=== PATIENT | male | born 1990 | race Caucasian/White ===

== ENCOUNTER 2018-09-25 10:35 | Emergency (ER) | payer OTHER ==
[2018-09-25] MEDS ORDERED: Sodium Chloride 0.9% 10 ML Syringe FLUSH PRN (12:06)
[2018-09-25] MEDS ORDERED: Ketorolac 30 MG/ML SDV IVPUSH ONE (12:07)
[2018-09-25] MEDS ORDERED: Dicyclomine 10 MG Cap PO ONE (12:07)
[2018-09-25] MEDS ORDERED: Dextrose 5%-Lact Ringers w/KCl 1,000 ML IV SCH (12:15)
--- NOTE | 2018-09-25 12:58 | EDM.PDOC ---
ED HPI GENERAL MEDICAL PROBLEM - General Chief Complaint: Gastrointestinal Problem Stated Complaint: DIARRHEA Time Seen by Provider: 09/25/18 11:57 Source of Information: Reports: Patient History Limitations: Reports: No Limitations - History of Present Illness INITIAL COMMENTS - FREE TEXT/NARRATIVE: 28-year-old male presents for evaluation and treatment Of diarrhea. Patient reports diarrhea started last night around 20:00. Reports that this diarrhea- like stool that is " Liquid " every 10-15 minutes since 20:00 last night. He reports associated symptoms of feeling chilled and diaphoretic. He is having some abdominal cramping. Denies any blood in the stool. Denies any fevers. He reports feeling dizzy. No nausea or vomiting or headaches. He also feels like he has some joint pain. He has been taking Tylenol for the joint pain, last dose was around 0400. Patient denies any recent travel. He denies any recent antibiotics recently. He states he did work at the [employer], he did eat there. He does not know of any ill contacts. Generalized Pain Score (Numeric/FACES): 7 - Related Data Allergies Allergy/AdvReac Type Severity Reaction Status Date / Time No Known Allergies Allergy Verified 09/25/18 11:06 Home Meds: Home Meds . [No Known Home Meds] 09/25/18 [History] Past Medical History - Past Surgical History Male Surgical History: Reports: Other (See Below) Other Male Surgeries/Procedures: removed " defect" from kidney Social & Family History - Tobacco Use Smoking Status *Q: Never Smoker Second Hand Smoke Exposure: No - Caffeine Use Caffeine Use: Reports: Coffee - Recreational Drug Use Recreational Drug Use: No ED ROS GENERAL - Review of Systems Review Of Systems: See Below Constitutional: Reports: Chills, Diaphoresis. Denies: Fever GI/Abdominal: Reports: Abdominal Pain (cramping), Diarrhea. Denies: Hematochezia, Melena, Nausea, Vomiting Musculoskeletal: Reports: Joint Pain ED EXAM, GI/ABD - Physical Exam Exam: See Below Exam Limited By: No Limitations General Appearance: Alert, WD/WN, No Apparent Distress Throat/Mouth: Normal Inspection, Normal Voice, No Airway Compromise, Other (dry mucus membranes) Respiratory/Chest: No Respiratory Distress, Lungs Clear, Normal Breath Sounds Cardiovascular: Normal Peripheral Pulses, Regular Rate, Rhythm, No Murmur GI/Abdominal Exam: Soft, Non-Tender, No Distention, Other (hyperactive bowel sounds) Neurological: Alert, Oriented, Normal Cognition Psychiatric: Normal Affect, Normal Mood Skin Exam: Warm, Dry, Normal Color Course - Vital Signs Last Recorded V/S: Last Vital Signs Temp 100.8 F H 09/25/18 11:04 Pulse 80 09/25/18 16:09 Resp 14 09/25/18 16:09 BP 105/92 H 09/25/18 16:09 Pulse Ox 98 09/25/18 16:09 - Orders/Labs/Meds Labs: Laboratory Tests 09/25/18 09/25/18 09/25/18 Range/Units 11:05 11:05 11:25 WBC 7.53 (4.23-9.07) K/mm3 RBC 6.03 (4.63-6.08) M/mm3 Hgb 17.5 (13.7-17.5) gm/L Hct 50.3 (40.1-51.0) % MCV 83.4 (79.0-92.2) fl MCH 29.0 (25.7-32.2) pg MCHC 34.8 (32.2-35.5) g/dl RDW Std Deviation 39.8 (35.1-43.9) fL Plt Count 234 (163-337) K/mm3 MPV 9.8 (9.4-12.3) fl Neutrophils % (Manual) 86 H (40-60) % Band Neutrophils % 0 (0-10) % Lymphocytes % (Manual) 8 L (20-40) % Atypical Lymphs % 0 % Monocytes % (Manual) 4 (2-10) % Eosinophils % (Manual) 2 (0.8-7.0) % Basophils % (Manual) 0 L (0.2-1.2) Platelet Estimate Adequate RBC Morph Comment Normal Sodium 141 (136-145) mEq/L Potassium 3.4 L (3.5-5.1) mEq/L Chloride 101 (98-107) mEq/L Carbon Dioxide 23 (21-32) mEq/L Anion Gap 20.4 H (5-15) BUN 17 (7-18) mg/dL Creatinine 1.2 (0.7-1.3) mg/dL Est Cr Clr Drug Dosing 106.56 mL/min Estimated GFR (MDRD) > 60 (>60) mL/min BUN/Creatinine Ratio 14.2 (14-18) Glucose 110 H (74-106) mg/dL Calcium 8.8 (8.5-10.1) mg/dL Magnesium 1.7 L (1.8-2.4) mg/dl Total Bilirubin 0.6 (0.2-1.0) mg/dL AST 33 (15-37) U/L ALT 83 H (16-63) U/L Alkaline Phosphatase 81 (46-116) U/L C-Reactive Protein 3.7 H* (<1.0) mg/dL Total Protein 7.5 (6.4-8.2) g/dl Albumin 4.2 (3.4-5.0) g/dl Globulin 3.3 gm/dL Albumin/Globulin Ratio 1.3 (1-2) C.difficile [id number] Presumptive negative C. difficile Tox (PCR) Negative Meds: Medications Discontinued Medications Generic Name Dose Route Start Last Admin Trade Name Freq PRN Reason Stop Dose Admin Dicyclomine HCl 20 mg 09/25/18 12:07 09/25/18 12:25 Bentyl PO 09/25/18 12:08 20 mg ONETIME ONE Administration Potassium Cl/Dextrose/Lact Ringer's 1,000 mls @ 500 mls/hr 09/25/18 12:15 12:29 D5 Lr With 20 Meq Kcl IV 500 mls/hr ASDIRECTED RICK Administration Lactated Ringer's 1,000 mls @ 999 mls/hr 09/25/18 13:46 09/25/18 14:33 Ringers, Lactated IV 09/25/18 14:46 999 mls/hr .BOLUS ONE Administration Ketorolac Tromethamine 30 mg 09/25/18 12:07 09/25/18 12:26 Toradol IVPUSH 09/25/18 12:08 30 mg ONETIME ONE Administration Sodium Chloride 10 ml 09/25/18 12:06 09/25/18 12:28 Saline Flush FLUSH 10 ml ASDIRECTED PRN Administration Keep Vein Open - Re-Assessments/Exams Free Text/Narrative Re-Assessment/Exam: 09/25/18 14:58 Reviewed the labs with the patient. Will obtain a second stool sample for wbc and culture. Will call if treatment is needed. Patient has received 2 liters of fluid, bentyl and toradol. Feeling improved. Will discharge home, discharge instructions as documented. Departure - Departure Time of Disposition: 15:05 Disposition: Home, Self-Care 01 Condition: Fair Clinical Impression: Diarrhea - Discharge Information *PRESCRIPTION DRUG MONITORING PROGRAM REVIEWED*: No *COPY OF PRESCRIPTION DRUG MONITORING REPORT IN PATIENT LAVELL: No Instructions: [place] Diet Referrals: PCP,None [Primary Care Provider] - Forms: ED Department Discharge Additional Instructions: recommend a probiotic. These are available [id number]. make sure you are drinking plenty of fluids. Recommend bland diet such as bread , crackers, Soup broth, etc. as tolerated. Follow-up with family medicine on Saturday for recheck of your symptoms. Recommend continued recommend Yue Segovia or Dr. Rubi. Call [phone] to schedule with one of these providers. Recommend obtaining an additional stool sample and return to lab. We will notify you if the results require further any additional treatment. Please return to ER if your symptoms change or worsen.
[2018-09-25] MEDS ORDERED: Lactated Ringers 1,000 ML IV ONE (13:46)
== END 2018-09-25 16:25 | disposition home or self-care (01) ==
LOC: JD.ED 10:35
DX: R19.7 Diarrhea, unspecified (principal)
CPT/HCPCS: 36415; 80053; 83735; 85007; 85027; 86140; 87046; 87425; 87427; 87493; 89055; 96361; 96374; 99284; A9270; J1885; J3480; J7120